=== PATIENT | female | born 1990 | race Caucasian/White ===

== ENCOUNTER 2016-07-10 03:16 | Inpatient (IN) | payer BC ==
[~2016-07-10] VITALS: Ht 162.6 cm; Wt 120.0 kg
[2016-07-10] VITALS (25 sets, daily range): BP systolic 102–137; BP diastolic 50–89; PULSE 63–115; TEMP 97.5–98.2
[~2016-07-10 03:16] MED LIST: IRON325 MG PO; MOTRIN 600600 MG/TAB PO; MOTRIN 800800 MG/TAB PO; PERCOCET 325 MG1 TA2 PO; PRENATAL1 TA1 PO
[2016-07-10] MEDS ORDERED: B COMPLEX #11 TA1 PO (04:07)
[2016-07-10] MEDS ORDERED: PROBIOTIC FORMU1 CAP PO (04:08)
[2016-07-10] MEDS ORDERED: VITAMIND3 5000 PO (04:08)
[2016-07-10 04:17] LABS: BASO % 0.1 % (0.0-2.0); EOS # 0.1 (0.0-0.7); EOS % 0.5 % (0-4.0); GRAN # 7.1 (1.4-6.5); GRAN % 74.4 % (42.2-75.2); HEMATOCRIT 38.3 % (37.0-47.0); HEMOGLOBIN 13.2 g/dl (12.5-16.0); LYMPH # 1.8 (1.2-3.4); LYMPH % 18.9 % (20.0-51.0); MEAN CELL VOLUME 87 fl (80.0-100.0); MEAN CORPUSCULAR HEMOGLOBIN 30 pg (27.0-31.0); MEAN CORPUSCULAR HGB CONC 35 g/dl (33.0-37.0); MEAN PLATELET VOLUME 13.1 fl (7.4-10.4); MONO # 0.5 (0.1-0.6); MONO % 5.6 % (1.7-9.3); PLATELET COUNT 138 K/mm3 (130-400); RED BLOOD COUNT 4.42 M/mm3 (4.10-5.30); REDCELL DISTRIBUTION WIDTH-CV 13.9 % (11.5-14.5); WHITE BLOOD COUNT 9.5 K/mm3 (4.8-10.8)
[2016-07-11 01:05] VITALS: BP 117/60; PULSE 66; TEMP 98.2
[2016-07-11 05:15] VITALS: BP 126/50; PULSE 55; TEMP 97.7
[2016-07-11 08:25] VITALS: BP 123/59; PULSE 68; TEMP 98.1
[2016-07-11] MEDS ORDERED: IBU600 MG PO (12:03)
== END 2016-07-11 13:20 | disposition home or self-care (01) | DRG 775 ==
LOC: LDRO 03:16 → LDR 03:36 → OB 10:00 → LDRO 07-16 10:17
PROVIDERS: Obstetrics & Gynecology
PROC: 10E0XZZ Delivery of Products of Conception, External Approach (ICD-10-PCS; principal; 2016-07-10)
PROC: 0HQ9XZZ Repair Perineum Skin, External Approach (ICD-10-PCS; 2016-07-10)
DX: O34.211 Maternal care for low transverse scar from previous cesarean delivery (principal); N85.8 Other specified noninflammatory disorders of uterus; O70.0 First degree perineal laceration during delivery; O77.0 Labor and delivery complicated by meconium in amniotic fluid; O69.81X0 Labor and delivery complicated by cord around neck, without compression, not applicable or unspecified; O09.43 Supervision of pregnancy with grand multiparity, third trimester; Z3A.39 39 weeks gestation of pregnancy; Z37.0 Single live birth
CPT/HCPCS: J2400; J2590; J7120

== ENCOUNTER 2017-12-28 01:10 | Outpatient (CLI) | payer OTHER ==
[~2017-12-28] VITALS: Ht 165.1 cm; Wt 124.1 kg
[~2017-12-28 01:10] MED LIST changes: +B COMPLEX #11 TA1 PO; +IBU600 MG PO; +PROBIOTIC FORMU1 CAP PO; +VITAMIND3 5000 PO
[2017-12-28 01:45] VITALS: BP 116/64; PULSE 88; TEMP 98
[2017-12-28] MEDS ORDERED: NATURE'S BLE1000 MCG (02:06)
[2017-12-29] MEDS ORDERED: CALCIUM CARBON650 M2 (06:34)
[2017-12-29] MEDS ORDERED: OMEGA-3 1000 MG1 CAP PO (06:34)
[2017-12-29] MEDS ORDERED: OMEGA-31 SGL PO (07:23)
[2017-12-29] MEDS ORDERED: MAGNESIUM200 MG PO (07:23)
[2017-12-29] MEDS ORDERED: VITAMIN D 400400 IU PO (07:24)
== END 2017-12-28 02:59 | disposition home or self-care (01) ==
LOC: LDRO 01:10
DX: O62.9 Abnormality of forces of labor, unspecified (principal); Z3A.40 40 weeks gestation of pregnancy

== ENCOUNTER 2017-12-29 07:12 | Inpatient (IN) | payer OTHER ==
[~2017-12-29] VITALS: Ht 165.1 cm; Wt 124.1 kg
[2017-12-29] VITALS (30 sets, daily range): BP systolic 116–148; BP diastolic 53–84; PULSE 58–100; TEMP 97.6–97.8
[~2017-12-29 07:12] MED LIST changes: +CALCIUM CARBON650 M2; +NATURE'S BLE1000 MCG; +OMEGA-3 1000 MG1 CAP PO
[2017-12-29] MEDS ORDERED: MAGNESIUM200 MG PO (07:23)
[2017-12-29] MEDS ORDERED: OMEGA-31 SGL PO (07:23)
[2017-12-29] MEDS ORDERED: VITAMIN D 400400 IU PO (07:24)
[2017-12-29 08:32] LABS: BASO % 0.3 % (0.0-2.0); EOS # 0.1 (0.0-0.7); EOS % 0.6 % (0-4.0); GRAN # 6.2 (1.4-6.5); GRAN % 72.7 % (42.2-75.2); HEMATOCRIT 37.9 % (37.0-47.0); HEMOGLOBIN 12.7 g/dl (12.5-16.0); LYMPH # 1.7 (1.2-3.4); MEAN CELL VOLUME 89 fl (80.0-100.0); MEAN CORPUSCULAR HEMOGLOBIN 30 pg (27.0-31.0); MEAN CORPUSCULAR HGB CONC 34 g/dl (33.0-37.0); MEAN PLATELET VOLUME 13.2 fl (7.4-10.4); MONO # 0.5 (0.1-0.6); MONO % 6.1 % (1.7-9.3); PLATELET COUNT 138 K/mm3 (130-400); RED BLOOD COUNT 4.28 M/mm3 (4.10-5.30); REDCELL DISTRIBUTION WIDTH-CV 14.6 % (11.5-14.5)
[2017-12-30 01:30] VITALS: BP 149/76; PULSE 78; TEMP 98.2
[2017-12-30 04:50] VITALS: BP 125/52; PULSE 75; TEMP 97.6
[2017-12-30 09:40] VITALS: BP 133/54; PULSE 81; TEMP 97.7
[2017-12-30] MEDS ORDERED: IBU600 MG PO (10:21)
== END 2017-12-30 15:50 | disposition home or self-care (01) | DRG 807 ==
LOC: LDR 07:12 → OB 18:34
PROVIDERS: Obstetrics & Gynecology
PROC: 10E0XZZ Delivery of Products of Conception, External Approach (ICD-10-PCS; principal; 2017-12-29)
PROC: 10907ZC Drainage of Amniotic Fluid, Therapeutic from Products of Conception, Via Natural or Artificial Opening (ICD-10-PCS; 2017-12-29)
PROC: 3E033VJ Introduction of Other Hormone into Peripheral Vein, Percutaneous Approach (ICD-10-PCS; 2017-12-29)
DX: O34.211 Maternal care for low transverse scar from previous cesarean delivery (principal); Z37.0 Single live birth; O48.0 Post-term pregnancy; Z3A.40 40 weeks gestation of pregnancy; O76 Abnormality in fetal heart rate and rhythm complicating labor and delivery; O69.81X0 Labor and delivery complicated by cord around neck, without compression, not applicable or unspecified; O99.02 Anemia complicating childbirth; Z28.21 Immunization not carried out because of patient refusal; O99.214 Obesity complicating childbirth; D50.9 Iron deficiency anemia, unspecified
CPT/HCPCS: J2590; J2795; J7120

== ENCOUNTER 2021-06-28 12:49 | Inpatient (IN) | payer OTHER ==
[~2021-06-28] VITALS: Ht 167.6 cm; Wt 128.2 kg
[~2021-06-28 12:49] MED LIST changes: +MAGNESIUM200 MG PO; +OMEGA-31 SGL PO; +VITAMIN D 400400 IU PO
[2021-07-05] VITALS (34 sets, daily range): BP systolic 93–130; BP diastolic 46–65; PULSE 56–101; TEMP 97.6–98.1
--- NOTE | 2021-07-05 06:15 | NUR ---
Presents to L&D, ambulatory, accompanied by spouse, "Alton," for scheduled induction of labor. Oriented to room and surroundings.
--- NOTE | 2021-07-05 06:30 | NUR ---
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 Charge nurse notified, requested she come start.
--- NOTE | 2021-07-05 07:00 | NUR ---
Unsuccessful attempt x1 at IV start by Sulema RN, charge nurse.
--- NOTE | 2021-07-05 07:20 | NUR ---
Successful IV start by KRISHAN Hernandez, 18 guage to left hand.
--- NOTE | 2021-07-05 07:23 | NUR ---
0723: Pit start @ 2mU/min after noting Category I monitor strip.
[2021-07-05 07:31] LABS: BASO % 0.1 % (0.0-2.0); EOS # 0.1 K/mm3 (0.0-0.7); EOS % 0.6 % (0.0-4.0); GRAN # 6.1 K/mm3 (1.4-6.5); GRAN % 72.7 % (42.2-75.2); HEMOGLOBIN 11.9 g/dl (12.5-16.0); LYMPH # 1.7 K/mm3 (1.2-3.4); LYMPH % 20.2 % (20.0-51.0); MEAN CELL VOLUME 87 fl (80.0-100.0); MEAN CORPUSCULAR HEMOGLOBIN 30 pg (27-31); MEAN CORPUSCULAR HGB CONC 34 g/dl (33.0-37.0); MEAN PLATELET VOLUME 12.3 fl (7.4-10.4); MONO # 0.5 K/mm3 (0.1-0.6); MONO % 5.9 % (1.7-9.3); PLATELET COUNT 150 K/mm3 (130-400); RED BLOOD COUNT 4.02 M/mm3 (4.10-5.30); REDCELL DISTRIBUTION WIDTH-CV 14.4 % (11.5-14.5)
[2021-07-05 07:34] LABS: HEMATOCRIT 34.9 % (37.0-47.0)
--- NOTE | 2021-07-05 09:10 | NUR ---
Requests epidural at this time. SVE 2-3/50/-3. LR bolus begun. Brian Best CRNA, notified of patient request.
--- NOTE | 2021-07-05 09:40 | NUR ---
Brian Best CRNA, here for epidural placement per patient request. Patient repositioned to sitting upright at side of bed in preparation for epidural placement. 0942: Time-out performed prior to epidural procedure. 0946: Iodine prep by ROLLER PICKER. 0949: Local anesthetic administered by ROLLER PICKER. 0950: Epidural needle in skin. 0952: LR #2 begun, continued with bolus. 0953: Epidural space obtained by ROLLER PICKER, single shot dose medication administered via epidural space by ROLLER PICKER. 0954: Epidural catheter threaded by ROLLER PICKER. 0955: Test dose administered by ROLLER PICKER, no adverse reactions noted. Patient tolerates procedure well.
--- NOTE | 2021-07-05 11:57 | NUR ---
Repositioned to right lateral with left leg up in stirrup, right leg straight. US repositioned.
--- NOTE | 2021-07-05 12:35 | NUR ---
Repositioned to left lateral with right leg in stirrup.
--- NOTE | 2021-07-05 12:50 | NUR ---
Note patient hypotensive. LR bolus begun.
--- NOTE | 2021-07-05 14:41 | NUR ---
here for delivery. 1446: First push attempt with instruction. 1446: Spontaneous vaginal delivery of head, nuchal x2 reduced by prior to rapid delivery of shoulders. 1446: Spontaneous vaginal delivery of male by . 1450: Intact perineum per assessment. 1452: Spontaneous vaginal delivery of placenta by . Pit bolus begun immediately following @ 333mU/min.
--- NOTE | 2021-07-05 17:00 | NUR ---
Straight cathed for 300 mL urine return, after noting fundus 2 above U, moderate lochia with fundal massage, patient does not feel urge to void, and legs remain heavy post epidural block. Chichi care provided following.
[2021-07-06 03:30] VITALS: BP 104/65; PULSE 56; TEMP 97.5
[2021-07-06 08:10] VITALS: BP 108/54; PULSE 62; TEMP 97.6
== END 2021-07-06 17:40 | disposition home or self-care (01) | DRG 807 ==
LOC: LDR 06-30 12:48 → OB 07-05 06:08 → LDR 07-05 09:44 → OB 07-05 17:05
PROVIDERS: ADMIT Obstetrics & Gynecology
PROC: 10E0XZZ Delivery of Products of Conception, External Approach (ICD-10-PCS; principal; 2021-07-05)
DX: O34.211 Maternal care for low transverse scar from previous cesarean delivery (principal); Z37.0 Single live birth; O99.214 Obesity complicating childbirth; O69.81X0 Labor and delivery complicated by cord around neck, without compression, not applicable or unspecified; Z3A.40 40 weeks gestation of pregnancy
CPT/HCPCS: J2405; J2590; J7120